=== PATIENT | male | born 1985 | race Asian ===

== ENCOUNTER 2019-12-05 21:09 | Emergency (ER) | payer SELFPAY ==
[~2019-12-05] VITALS: Ht 182.9 cm; Wt 60.0 kg
--- NOTE | 2019-12-05 22:03 | NUR ---
NO ANSWER WHEN CALLED FOR ROOM
--- NOTE | 2019-12-05 23:05 | NUR ---
NO ANSWER WHEN CALLED FOR ROOM
[2019-12-05 23:20] VITALS: BP 108/81
== END 2019-12-05 23:34 | disposition home or self-care (01) ==
LOC: ED 21:39
DX: K08.89 Other specified disorders of teeth and supporting structures (principal); F17.210 Nicotine dependence, cigarettes, uncomplicated
CPT/HCPCS: 99281